=== PATIENT | female | born 1950 | race African-American/Black ===

== ENCOUNTER 2018-01-02 08:22 | Outpatient (CLI) | payer MEDICARE ==
--- NOTE | 2018-01-02 12:59 | MMO ---
LEFT BREAST SCREENING MAMMOGRAM: Date: 01-02-18 Comparison: 03-09-16 History: History of previous right sided mastectomy. FINDINGS: This study is interpreted with the assistance of computer aided detection. Digital screening mammography performed. There is a subtle area of possible increased density in the upper outer quadrant of the left breast. This may represent overlying shadows or may represent a newl y developed small soft tissue lesion. I do recommend further evaluation using spot compression views as well as tomosynthesis evaluation and possible sonographic evaluation of the upper outer quadrant o f the left breast. IMPRESSION: BIRADS category 0 - incomplete. Additional left breast spot compression and sonographic evaluation re commended. POS: KURT
== END 2018-01-02 08:23 | disposition home or self-care (01) ==
LOC: SCSMAMMO 08:22
PROVIDERS: ATTEND Family Medicine
DX: Z12.31 Encounter for screening mammogram for malignant neoplasm of breast (principal)
CPT/HCPCS: 77067

== ENCOUNTER 2018-01-12 07:42 | Outpatient (CLI) | payer MEDICARE | END 2018-01-12 07:43 | disposition home or self-care (01) | LOC: BICMAMMO 07:42 | PROVIDERS: ATTEND Family Medicine | DX: R92.2 Inconclusive mammogram (principal); Z85.3 Personal history of malignant neoplasm of breast | CPT/HCPCS: 77065; G0279 ==

== ENCOUNTER 2019-01-15 07:37 | Outpatient (CLI) | payer MEDICARE ==
--- NOTE | 2019-01-15 08:18 | MMO ---
Left Breast MAMMO Unilat Diag DDI LT+ROEL. CLINICAL HISTORY: Patient is 68 years old and is seen for diagnostic exam. The patient has no family history of breast cancer. The patient has a history of right Mastectomy in 2015 - malignant. VIEWS: The views performed were: left craniocaudal with tomosynthesis; left mediolateral oblique with tomosynthesis; and left mediolateral with tomosynthesis. FILMS COMPARED: The present examination has been compared to prior imaging studies performed at [facility] on 03/09/2016 and 01/02/2018, at [facility] on 01/12/2018, and at [facility] on 11/04/2016. This study has been interpreted with the assistance of computer-aided detection. MAMMOGRAM FINDINGS: There are scattered fibroglandular densities. There are no suspicious masses, suspicious calcifications, or new areas of architectural distortion. IMPRESSION: THERE IS NO MAMMOGRAPHIC EVIDENCE OF MALIGNANCY. A ROUTINE FOLLOW-UP MAMMOGRAM IN 1 YEAR IS RECOMMENDED. THE RESULTS OF THIS EXAM WERE SENT TO THE PATIENT. ACR BI-RADS Category 1 - Negative MAMMOGRAPHY NOTE: 1. A negative mammogram report should not delay a biopsy if a dominant of clinically suspicious mass is present. 2. Approximately 10% to 15% of breast cancers are not detected by mammography. 3. Adenosis and dense breasts may obscure an underlying neoplasm. Reported by: SANDY BEARD MD Electonically Signed: [id number]
== END 2019-01-15 07:38 | disposition home or self-care (01) ==
LOC: BICMAMMO 07:37
PROVIDERS: ATTEND Family Medicine
DX: C50.919 Malignant neoplasm of unspecified site of unspecified female breast (principal); Z90.11 Acquired absence of right breast and nipple
CPT/HCPCS: 77065; G0279; 77066

== ENCOUNTER 2020-01-17 08:57 | Outpatient (CLI) | payer MEDICARE ==
--- NOTE | 2020-01-17 09:30 | MMO ---
Left Breast MAMMO Unilat Diag DDI LT+ROEL. CLINICAL HISTORY: Patient is 69 years old and is seen for diagnostic exam. The patient has no family history of breast cancer. The patient has a history of right Mastectomy in 2015 - malignant. VIEWS: The views performed were: left craniocaudal with tomosynthesis; left mediolateral oblique with tomosynthesis; and left mediolateral with tomosynthesis. FILMS COMPARED: The present examination has been compared to prior imaging studies performed at [facility] on 01/02/2018, at [facility] on 01/12/2018 and 01/15/2019, and at [facility] on 11/04/2016. This study has been interpreted with the assistance of computer-aided detection. MAMMOGRAM FINDINGS: There are scattered fibroglandular densities. There are no suspicious masses, suspicious calcifications, or new areas of architectural distortion. IMPRESSION: THERE IS NO MAMMOGRAPHIC EVIDENCE OF MALIGNANCY. A ROUTINE FOLLOW-UP MAMMOGRAM IN 1 YEAR IS RECOMMENDED. THE RESULTS OF THIS EXAM WERE SENT TO THE PATIENT. ACR BI-RADS Category 1 - Negative MAMMOGRAPHY NOTE: 1. A negative mammogram report should not delay a biopsy if a dominant of clinically suspicious mass is present. 2. Approximately 10% to 15% of breast cancers are not detected by mammography. 3. Adenosis and dense breasts may obscure an underlying neoplasm. Reported by: ANA LAURA SMITH MD Electonically Signed: [id number]
== END 2020-01-17 08:58 | disposition home or self-care (01) ==
LOC: BICMAMMO 08:57
PROVIDERS: ATTEND Family Medicine
DX: Z08 Encounter for follow-up examination after completed treatment for malignant neoplasm (principal); Z85.3 Personal history of malignant neoplasm of breast
CPT/HCPCS: 77065; G0279